=== PATIENT | female | born 1980 | race Caucasian/White ===

== ENCOUNTER → 2021-06-23 09:49 | Outpatient (CLI) | payer OTHER, SELFPAY ==
--- NOTE | 2021-06-23 10:39 | RAD_ITS ---
EXAM DESCRIPTION: PA and lateral CHEST CLINICAL HISTORY: 40 years Female, SINUSITIS SINUSITIS COMPARISON: None FINDINGS: The thorax is intact. The heart and mediastinum appear to be within normal limits. The lungs appear to be well areated without evidence of pneumonic consolidation or pleural effusion. RAD/Chest PA and Lateral IMPRESSION: Normal chest. Electronically Signed: Shree Livingston DO at 13:14 EDT Tel , Service support ,
--- NOTE | 2021-06-23 14:09 | PFTCOMP_ITS ---
COMPLETE PULMONARY FUNCTION TEST INTERPRETATION Brief HPI: Patient is a 40 year old female, currently under the care of Dr. Raman, who presents to [facility] for complete pulmonary function tests secondary to diagnosis of sinusitis. Respiratory therapist reports good effort and reproducible results. Interpretation: Forced expiration spirometry shows no large airways obstructive ventilatory defect with an FEV1 of 94% predicted. There is no significant bronchodilator response by strict ATS criteria. Spirograms are of good quality and plateau normally. The respiratory flow volume loop shows a normal pattern. Lung volumes by body plethysmography show a normal total lung capacity at 4.91 L, 110% predicted. All other lung volumes are within normal limits. Diffusion capacity by carbon monoxide is normal at 74% predicted. The airway resistance is normal. No previous pulmonary function tests were available for review. Impression: These pulmonary function tests are within normal limits.
== END ==
PROVIDERS: PCP Family Medicine
DX: J32.9 Chronic sinusitis, unspecified (principal)
CPT/HCPCS: 71046; 94060; 94726; 94729